=== PATIENT | female | born 1960 | race Caucasian/White ===

== ENCOUNTER → 2018-01-03 15:46 | Outpatient (CLI) | payer OTHER, SELFPAY | LOC: LAB 15:51 → LABSPEC 15:53 | PROVIDERS: Family Provider Family Medicine; PCP Family Medicine; Visit Provider Obstetrics & Gynecology | DX: Z12.11 Encounter for screening for malignant neoplasm of colon (principal) | CPT/HCPCS: 82274 ==

== ENCOUNTER → 2019-08-16 14:22 | Outpatient (CLI) | payer SELFPAY ==
[2019-08-16 10:59] VITALS: BMI 21.9
[2019-08-20 13:39] LABS: HPV APTIMA, High Risk Negative (Negative)
== END ==
PROVIDERS: Family Provider Family Medicine; PCP Family Medicine; Visit Provider Nurse Practitioner Women's Health
DX: Z12.4 Encounter for screening for malignant neoplasm of cervix (principal)
CPT/HCPCS: 87624; 88175; G0145

== ENCOUNTER 2020-11-06 00:18 | Emergency (ER) | payer OTHER, SELFPAY ==
[2019-08-16 10:59] VITALS: BMI 21.9
[2020-11-06 00:19] VITALS: BP 135/65; PULSE 87; RESP 18; TEMP 38.4; O2SAT 96; BMI 21.9
[2020-11-06 00:23] VITALS: BP 135/65; PULSE 84; RESP 17; TEMP 38.3; O2SAT 95
--- NOTE | 2020-11-06 00:41 | ED.VIS.GEN ---
History of Present Illness Chief Complaint: Other, Pain/Inj Detail of Chief Complaint: Joint pain, fever, rash Informant: Patient Onset: Days Context: Gradual Onset Narrative: Patient present secondary to joint pain, fever, sore throat, and rash. She states her tested positive for Covid the week of . She had similar symptoms and assumed she was positive but was never tested. She was nearly back to her normal self. Late last week she was out doing yard work and that evening noted a fever with some mild right flank pain. She states the next morning her flank pain had resolved but she has continued to have a fever over the past 4 days. She noted a diffuse rash over her body a couple days ago. She was seen at [facility] today and had a Covid test sent but does not yet have results. A chest x-ray was performed and was normal. She states she was told to watch the rash. After leaving the facility she noted increased pain in her joints, initially worse on the right arm and now more diffusely. Tonight she developed a sore throat. She states she has difficulty swallowing water. - Past Medical History (1) DCIS (ductal carcinoma in situ) of breast Status: Resolved Comment: Right, 2015. biopsy only. Past Medical History - Allergies and Home Meds Allergies/Adverse Reactions: Allergies No Known Allergies Allergy (Verified 11/06/20 00:18) Primary Care Physician: Dwaine Bautista III, MD [Primary Care Provider] - Lives: Spouse/ Significant Other Smoking Status: Never smoker Review of Systems General: Reports: Fever Eyes: Denies: Visual changes - bilaterally ENT: Reports: Sore throat Cardiovascular: Denies: Chest pain Respiratory: Reports: Cough - Minimal cough. Denies: Dyspnea, Sputum Gastrointestinal: Denies: Abdominal pain, Nausea, Vomiting, Diarrhea Genitourinary: Denies: Dysuria Musculoskeletal: Reports: Extremity Pain Skin: Reports: Rash Neurological: Denies: Headache Hematologic: Denies: Easy bruising, Easy bleeding Physical Exam Vital Signs/Narrative: Vital Signs Temp Pulse Resp BP Pulse Ox 11/06/20 00:19 101.2 F H 87 18 135/65 H 96 Inital Vital Signs reviewed: Yes General: Well nourished, Well developed, - - Patient sitting upright in bed speaking with a strong voice. She is tolerating secretions well. Head: Normocephalic ENT: Moist mucous membranes, TM's clear, - - Normal-appearing posterior pharynx. Neck: Supple Cardiovascular: Regular rate, Regular rhythm Respiratory: No distress, CTA bilaterally Abdomen: Soft, Nontender, Normal bowel sounds Extremities: - - No focal joint tenderness on examination. No joint edema or erythema. Full range of motion at all joints. Skin: - - Flat erythematous patchy rash noted over the trunk. Patient states she also has lesions on the backs of her knees, but is wearing pants at the time examination. No target lesions noted. No vesicles. Neurological: Alert, Oriented x3 Psychological: Normal affect Diagnostic/Tx/Re-eval 11/06/20 00:51 Mucosa - Nasopharyngeal SARS-CoV-2 Antigen (Rapid) - Final 11/06/20 00:51 Mucosa - Throat Group A Streptococcus Rapid Screen - Preliminary Laboratory Results 11/06/20 11/06/20 11/06/20 00:51 00:51 00:51 WBC 6.5 RBC 4.54 Hgb 12.6 Hct 37.9 MCV 83.5 MCH 27.8 MCHC 33.2 RDW Std Deviation 39.4 RDW Coeff of Farzana 13.0 Plt Count 65 L MPV 11.9 Immature Gran % (Auto) 0.500 Neut % (Auto) 81.4 H Lymph % (Auto) 10.9 L [place] % (Auto) 5.4 Eos % (Auto) 1.2 Baso % (Auto) 0.6 Absolute Neuts (auto) 5.3 Absolute Lymphs (auto) 0.70 L Nucleated RBC % 0 Sodium 138 Potassium 3.2 L Chloride 104 Carbon Dioxide 24.0 Anion Gap 10 BUN 11 Creatinine 0.68 Estim Creat Clear Calc 77.87 Est GFR (MDRD) Af Amer 114 Est GFR (MDRD) Non-Af 94 BUN/Creatinine Ratio 16.2 Glucose 121 H Lactic Acid 1.2 Calcium 8.5 Total Bilirubin 0.40 Direct Bilirubin 0.16 AST 36 ALT 51 Alkaline Phosphatase 97 Total Protein 6.9 Albumin 3.2 Globulin 3.7 Urine Color Urine Clarity Urine pH Ur Specific [place] Urine Protein Urine Glucose (UA) Urine Ketones Urine Occult Blood Urine Nitrite Urine Bilirubin Urine Urobilinogen Ur Leukocyte Esterase Urine RBC Urine WBC Ur Squamous Epith Cells Urine Bacteria Urine Mucus 11/06/20 01:30 WBC RBC Hgb Hct MCV MCH MCHC RDW Std Deviation RDW Coeff of [place] Plt Count MPV Immature Gran % (Auto) Neut % (Auto) Lymph % (Auto) [place] % (Auto) Eos % (Auto) Baso % (Auto) Absolute Neuts (auto) Absolute Lymphs (auto) Nucleated RBC % Sodium Potassium Chloride Carbon Dioxide Anion Gap BUN Creatinine Estim Creat Clear Calc Est GFR (MDRD) Af Amer Est GFR (MDRD) Non-Af BUN/Creatinine Ratio Glucose Lactic Acid Calcium Total Bilirubin Direct Bilirubin AST ALT Alkaline Phosphatase Total Protein Albumin Globulin Urine Color Yellow Urine Clarity Clear Urine pH 6.0 Ur Specific [place] 1.020 Urine Protein 30 H Urine Glucose (UA) Normal Urine Ketones 150 H Urine Occult Blood 50 H Urine Nitrite Negative Urine Bilirubin Negative Urine Urobilinogen Normal Ur Leukocyte Esterase 25 H Urine RBC 0 SEEN Urine WBC 0-5 SEEN Ur Squamous Epith Cells 0 SEEN Urine Bacteria 0 SEEN Urine Mucus 4+ - Medical Decision Making Patient does report that she had a chest x-ray done at the urgent care today that was normal so this was not repeated tonight. Patient was given Tylenol as well as 15 mg of IV Toradol. On repeat evaluation she does report improvement. She was able to tolerate p.o. Tylenol and drink. Test results are discussed with her. Her rapid strep is negative, however I do entertain the possibility of scarlet fever with her sore throat, fever, and rash. I did also voiced concern about her platelet count being low at 65,000. She does not know when she may have had any labs done previously. Patient does report that her rash does itch. She will be treated with both Pen-Vee K as well as prednisone. We talked about risk and benefits and I think that the benefit at this point if she does not fact have scarlet fever or post viral ITP would outweigh any risk. I will speak with patient's primary care physician in the morning to help arrange close follow-up for repeat labs. Patient is comfortable with this plan. ED Disposition - Plan for ED Patient: Disposition: Home or Assisted Living Diagnosis: Viral syndrome, Thrombocytopenia Instructions: ED Viral Syndrome (Adult), Thrombocytopenia Prescriptions: Prednisone [Deltasone] 40 mg PO DAILY #10 tab Transmission Status: Pending to [id number] Penicillin V Potassium 500 mg PO 4X/DAY #40 tab Transmission Status: Pending to [id number] Referrals: Dwaine Bautista III, MD [Primary Care Provider] - 2 Days
[2020-11-06] MEDS: Acetaminophen 500 MG Tablet 1000 MG PO (00:57)
[2020-11-06] MEDS: Ketorolac 15 MG/ML Vial IV (01:00)
[2020-11-06 01:08] LABS: Absolute Neutrophil Count 5.3 X10^3/uL (2.0-7.7); Basophil# 0.04 X10^3/uL; Basophil% 0.6 % (0-1); Eosinophil# 0.08 X10^3/uL; Eosinophils% 1.2 % (0-5); Hematocrit 37.9 % (37-47); Hemoglobin 12.6 g/dL (12.0-15.0); Lymphocyte % 10.9 % (19-41); Mean Corp Hgb Conc 33.2 g/dL (32-36); Mean Corpuscular Hgb 27.8 pg (27.0-32.0); Mean Corpuscular Volume 83.5 fL (81-99); Mean Platelet Vol. 11.9 fl (6.2-12.0); Monocyte# 0.35 X10^3/uL; Monocyte% 5.4 % (0-10); NRBC Flagged by Analyzer 0 % (0-5); Neutrophil # 5.25 X10^3/uL (2.7-7.7); Neutrophil % 81.4 % (47-70); POSITIVE COUNT YES; Platelet Count 65 K/mm3 (150-450); RBC Distribution Width SD 39.4 fl (35.1-43.9); Red Blood Count 4.54 M/mm3 (4.2-5.4); White Blood Count 6.5 K/mm3 (4.4-11.0)
[2020-11-06 01:19] LABS: Differential Indicated SCAN CRITERIA MET
[2020-11-06 01:23] VITALS: BP 136/71; PULSE 75; RESP 19; TEMP 38.3; O2SAT 99
[2020-11-06 01:27] LABS: AST(SGOT) 36 U/L (15-37); Alanine Aminotransfer ALT/SGPT 51 U/L (13-56); Albumin, Serum 3.2 g/dL (3.2-5.0); Alkaline Phosphatase 97 U/L (45-117); Anion Gap 10 (5-15); BUN 11 mg/dL (7-18); BUN/Creat Ratio 16.2 RATIO (10-20); Bilirubin, Direct 0.16 mg/dL (0.00-0.30); Calcium,Total 8.5 mg/dL (8.5-10.1); Chloride 104 mmol/L (98-107); Creatinine, Serum 0.68 mg/dL (0.55-1.02); EST Glomerular Filtration Rate 94 mL/min (>60); Est Glom Filt Rate - Afr Amer 114 mL/min (>60); Estimated Creatinine Clearance 77.87 ml/min; Globulin 3.7 g/dL (2.2-4.2); Glucose 121 mg/dL (74-106); Potassium 3.2 mmol/L (3.5-5.1); Protein, Total 6.9 g/dL (6.4-8.2); Sodium Level 138 mmol/L (136-145)
[2020-11-06 01:28] LABS: Lactic Acid 1.2 mmol/L (0.4-1.9)
[2020-11-06 01:34] LABS: Bacteria 0 SEEN /hpf (None Seen); Red Blood Cells-Urine 0 SEEN /hpf (0-5); Squamous Epithelial Cells - UA 0 SEEN /hpf (5-10)
[2020-11-06 01:39] LABS: Color, Urine Yellow (Yellow); Glucose, Dipstick Normal (Normal); Leukocyte Esterase-Dipstick 25 /ul (Negative); Nitrite-Dipstick Negative (Negative); Occult Blood-Urine 50 /ul (Negative); Protein-Dipstick 30 mg/dl (Negative); Urine Bilirubin Dipstick Negative (Negative); Urine Clarity Clear (Clear); Urine Urobilinogen Normal (Normal)
[2020-11-06 01:47] LABS: Ketone-Dipstick 150 mg/dl (Negative); Mucous, Urine 4+ /hpf (<or=2+); White Blood Cells 0-5 SEEN /hpf (0-5)
[2020-11-06 02:00] VITALS: BP 133/64; PULSE 74; RESP 20; TEMP 37.3; O2SAT 95
[2020-11-06 02:18] VITALS: O2SAT 95
[2020-11-06] MEDS: Penicillin Vk 250 MG Tablet 500 MG PO (02:29)
[2020-11-06] MEDS: predniSONE 20 MG Tablet 40 MG PO (02:29)
== END 2020-11-06 03:01 | disposition home or self-care (01) ==
PROVIDERS: Emergency Provider Emergency Medicine; PCP Family Medicine
DX: B34.9 Viral infection, unspecified (principal); D69.6 Thrombocytopenia, unspecified
CPT/HCPCS: 36415; 80048; 80076; 81001; 83605; 85025; 87040; 87426; 87880; 99285; A4216